=== PATIENT | female | born 2000 | race African-American/Black ===

== ENCOUNTER 2021-01-22 08:15 | Outpatient (CLI) | payer OTHER, SELFPAY ==
--- NOTE | ~2021-01-22 | NM_ITS ---
EXAM: NM gastric emptying study DATE: 01/22/2021 13:38 INDICATION: Gastroparesis and postprandial nausea TECHNIQUE: A gastric emptying study was performed using the methodology of Renee CUNNINGHAM, et al. J Nucl Med 2007; 48:568-572. The patient was given a meal consisting of 2 scrambled eggs labeled with 1 mCi Tc-99m sulfur colloid, 2 slices of toast, two packages of jam, and approximately 120 mL of water. Si multaneous anterior and posterior 1-min images of the abdomen were obtained with the patient supine a t multiple time points over a total period of 4 hours. The geometric mean of anterior and posterior v iews was determined, and the percentage retention was calculated for each time point. COMPARISON: None. FINDINGS: Gastric retention of the radiotracer-labeled meal was 61%, 31%, and 4% at the 1-hour, 2-hour, and 4-h our time points, respectively. With this technique, apparent rapid gastric emptying is suggested by < 30% gastric retention at 1 hour. Delayed gastric emptying is defined by gastric retention of >90% at 1 hour, >60% retention at 2 hours, or >10% retention at 4 hours. IMPRESSION: 1. Normal gastric emptying. Reviewed, dictated and finalized at location B. IMPRESSION: 1. Normal gastric emptying.
== END 2021-01-22 08:16 | disposition home or self-care (01) ==
PROVIDERS: PCP Emergency Medicine; Visit Provider Emergency Medicine
DX: R11.0 Nausea (principal); K31.84 Gastroparesis; R62.52 Short stature (child)
CPT/HCPCS: 78264; A9541

== ENCOUNTER 2021-01-25 07:24 | Outpatient (CLI) | payer OTHER, SELFPAY ==
--- NOTE | ~2021-01-25 | XR_ITS ---
EXAMINATION: XR UGIAC wo kub EXAM DATE: 01/25/2021 08:15 INDICATION: Postprandial nausea, gastroparesis. TECHNIQUE: Standard single and double contrast barium upper GI examination was performed by radiolog ist Christopher Patricio M.D. Pulsed dose reduction fluoroscopy was used with fluoroscopic time of 0.5 minut es. The DAP for this procedure was 0.4 Gycm2. A total of 84 images obtained for the exam. There is no prior study for comparison. FINDINGS: There is no esophageal stricture, diverticulum or mass identified. Gastroesophageal juncti on is normal in appearance. Reflux was not demonstrated during this examination. The stomach has a normal appearance without evidence of mass lesion, ulceration or filling defect. T here is normal rugal fold pattern. The duodenum and duodenal sweep are normal in appearance. IMPRESSION: Normal exam. Reviewed, dictated and finalized at location A. IMPRESSION: Normal exam.
== END 2021-01-25 07:25 | disposition home or self-care (01) ==
LOC: ANHIMG 07:26
PROVIDERS: PCP Emergency Medicine; Visit Provider Emergency Medicine
DX: K31.84 Gastroparesis (principal); R62.7 Adult failure to thrive
CPT/HCPCS: 74246

== ENCOUNTER 2022-07-21 14:17 | Emergency (ER) | payer OTHER, SELFPAY ==
--- NOTE | ~2022-07-21 | XR_ITS ---
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 RESULT: Lines, tubes, and devices: None. Lungs and pleura: Clear. Cardiomediastinal silhouette: Normal. Other: No acute osseous or upper abdominal finding. IMPRESSION: No acute cardiopulmonary process. Reviewed, dictated and finalized at location K. L ERECTING PUSHER
--- NOTE | 2022-07-21 14:19 | ECG_ITS ---
Measurements Intervals [place] Rate: 113 P: 66 WA: 113 QRS: 79 QRSD: 72 T: 1 QT: 283 QTc: 389 Interpretive Statements SINUS TACHYCARDIA WITH SHORT WA INTERVAL POSSIBLE LEFT ATRIAL ENLARGEMENT [-0.1mV P WAVE IN V1/V2] NONSPECIFIC T-WAVE ABNORMALITY ABNORMAL ECG NO PREVIOUS ECG AVAILABLE FOR COMPARISON Electronically Signed On 07-23-2022 14:06:06 COOKING CHEF by Bhavin Childress M.D.
[2022-07-21 14:45] VITALS: BP 119/56; PULSE 104; RESP 18; TEMP 37; O2SAT 100
--- NOTE | 2022-07-21 16:54 | ED.CHESTPAIN ---
HPI - Chest Pain General Chief Complaint: Chest Pain Stated Complaint: chest pain Course Vital Signs Vital signs: Vital Signs Temperature 37.0 C 07/21/22 14:45 Pulse Rate 104 H 07/21/22 14:45 Respiratory Rate 18 07/21/22 14:45 Blood Pressure 119/56 L 07/21/22 14:45 Pulse Oximetry 100 07/21/22 14:45 Oxygen Delivery Room Air 07/21/22 14:45 Temperature 37.0 C 07/21/22 14:45 Pulse Rate 104 H 07/21/22 14:45 Respiratory Rate 18 07/21/22 14:45 Blood Pressure 119/56 L 07/21/22 14:45 Pulse Oximetry 100 07/21/22 14:45 Oxygen Delivery Room Air 07/21/22 14:45 Discharge Plan Discharge Follow-up/Referrals: Vijay Ambriz MD [Primary Care Provider] -
[2022-07-21 18:30] VITALS: BP 117/78; PULSE 90; RESP 18; O2SAT 97
--- NOTE | 2022-07-21 19:25 | ED.GENADULT ---
HPI - General Adult General Chief complaint: Chest Pain Stated complaint: chest pain Time Seen by Provider: 07/21/22 16:55 History of Present Illness HPI narrative: Patient 22-year-old female who presents emergency department with chief complaint of chest pain. The patient reports for the last 2 weeks has been having both a sharp and a pressure-like pain on the right side of her chest. The patient states the pain is worse with palpation the patient reports that her mother felt a knot on the right side of her chest wall patient reports no significant past medical history reports she only takes vitamins on a regular basis and occasionally takes ibuprofen with her last dose being this morning. Patient denies being on oral contraceptives denies smoking. Related Data Allergies Allergy/AdvReac Type Severity Reaction Status Date / Time No Known Allergies Allergy Verified 07/21/22 20:06 Review of Systems Review of Systems: A 10 system review of systems was completed on the patient and is negative except for what is stated in the HPI. Nursing and ancillary documentation was reviewed. Exam Narrative: GENERAL: Well-appearing, well-nourished, and in no acute distress. HEAD: Normocephalic, atraumatic. EYES: PERRLA and EOMI. ENT: Nares clear, no rhinorrhea or epistaxis. Mucous membranes moist. NECK: Supple. CHEST: Clear to auscultation. Tenderness to palpation on the right sternal border No respiratory distress. HEART: Regular rate and rhythm. No murmur heard. Normal peripheral pulses. ABDOMEN: Soft, nontender, nondistended, normal active bowel sounds. EXTREMITIES: Normal range of motion. No edema. SKIN: Warm, dry, no rash. NEURO: No focal deficits. Alert and oriented x3. PSYCH: Normal mood and affect. Course Vital Signs Vital signs: Vital Signs Temperature 37.0 C 07/21/22 14:45 Pulse Rate 104 H 07/21/22 14:45 Respiratory Rate 18 07/21/22 14:45 Blood Pressure 119/56 L 07/21/22 14:45 Pulse Oximetry 100 07/21/22 14:45 Oxygen Delivery Room Air 07/21/22 14:45 Temperature 37.0 C 07/21/22 14:45 Pulse Rate 90 07/21/22 18:30 Respiratory Rate 18 07/21/22 18:30 Blood Pressure 117/78 07/21/22 18:30 Pulse Oximetry 97 07/21/22 18:30 Oxygen Delivery Room Air 07/21/22 14:45 Medical Decision Making MDM Narrative Medical decision making narrative: Differential diagnosis includes costochondritis, pleurisy, chest wall pain, ACS, pneumothorax, Chest x-ray was obtained and reviewed by radiology and results were reviewed by me that showed no focal findings. EKG is sinus tachycardia rate of [address] elevation or ST depression The patient had a negative troponin of less than 0.012 and a D-dimer that was also negative. Patient's discomfort has been ongoing for several days therefore the patient can be ruled out from a acute coronary syndrome. Chest x-ray showed no evidence of pneumothorax or widened mediastinum. Patient's pain was improved with Toradol the patient symptoms are most likely consistent with costochondritis the patient should follow-up with her primary care provider. Vital Signs Vital Signs: Vital Signs Temperature 37.0 C 07/21/22 14:45 Pulse Rate 104 H 07/21/22 14:45 Respiratory Rate 18 07/21/22 14:45 Blood Pressure 119/56 L 07/21/22 14:45 Pulse Oximetry 100 07/21/22 14:45 Oxygen Delivery Room Air 07/21/22 14:45 Temperature 37.0 C 07/21/22 14:45 Pulse Rate 90 07/21/22 18:30 Respiratory Rate 18 07/21/22 18:30 Blood Pressure 117/78 07/21/22 18:30 Pulse Oximetry 97 07/21/22 18:30 Oxygen Delivery Room Air 07/21/22 14:45 Lab Data 07/21/22 19:39 07/21/22 19:39 Labs: Lab Results 07/21/22 07/21/22 07/21/22 Range/Units 19:39 19:39 19:39 WBC 7.3 (4.5-10.0) K/mm3 RBC 4.60 (4.2-5.4) M/mm3 Hgb 13.8 (12.0-15.0) g/dL Hct 42.4 (37.0-47.0) % MCV 92.2 (80-100) fl MCH 30.0
--- NOTE | 2022-07-21 19:41 | PC.NURSE ---
Pt is a hard stick, unable to obtain IV access. Blood sent to lab.
[2022-07-21 19:59] LABS: Basophils Absolute Auto 0.1 K/mm3 (0.0-0.1); Basophils Percent Auto 0.7 % (0.2-1.2); Eosinophils Absolute Auto 0.1 K/mm3 (0-0.3); Eosinophils Percent Auto 1.4 % (0-4.4); Hematocrit 42.4 % (37.0-47.0); Hemoglobin 13.8 g/dL (12.0-15.0); Immature Granulocyte Absolute 0.02 K/mm3 (0.00-0.031); Immature Granulocyte Percent A 0.3 % (0-0.5); Lymphocytes Absolute Auto 2.29 K/mm3 (0.9-3.2); Lymphocytes Percent Auto 31.6 % (18.3-44.2); Mean Corpuscular HGB Conc 32.5 g/dl (32-36); Mean Corpuscular Volume 92.2 fl (80-100); Mean Platelet Volume 9.6 fl (7.4-10.4); Monocytes Absolute Auto 0.4 K/mm3 (0.1-0.6); Monocytes Percent Auto 5.8 % (2.6-8.5); Neutrophils Absolute Auto 4.4 K/mm3 (1.3-6.7); Neutrophils Percent Auto 60.2 % (45.5-73.1); Platelet Count Result 242 k/mm3 (150-375); Red Cell Distribution Width 13.1 % (11.5-14.5); White Blood Count 7.3 K/mm3 (4.5-10.0)
[2022-07-21] MEDS: KETOROLAC 30 MG/ML VIAL (*BKC) IV PUSH (20:06)
[2022-07-21 20:10] LABS: Alanine Aminotransferase 20 U/L (6-35); Albumin Level 4.8 g/dL (3.5-5.1); Alkaline Phosphatase 93 U/L (38-126); Anion Gap 8 mmol/L (8-16); Aspartate Amino Transferase 29 U/L (14-36); Bilirubin,Total 0.9 mg/dL (0.2-1.3); Blood Urea Nitrogen 14 mg/dL (7-17); Calcium 9.4 mg/dL (8.4-10.2); Carbon Dioxide 28 mmol/L (22-30); Chloride 101 mmol/L (98-107); Estimated Glomerular Filt Rate > 60; Glucose 73 mg/dL (65-110); Lipase 199 U/L (23-300); Potassium 4.1 mmol/L (3.4-5.0); Sodium 137 mmol/L (137-145)
[2022-07-21] MEDS: Please add drug allergy info to patient profile. 1 EACH XX (20:10)
[2022-07-21 20:22] LABS: Troponin I < 0.012 ng/mL (0.000-0.034)
[2022-07-21 20:38] LABS: INR 1.1; Prothrombin Time 14.1 Seconds (11.1-14.7)
[2022-07-21 20:40] LABS: D Dimer 0.39 ug/mL (<0.48)
--- NOTE | 2022-07-21 21:15 | PC.NURSE ---
Patient report received from Jose RN. Assumed care of patient at this time.
[2022-07-21 21:17] VITALS: BP 97/67; PULSE 84; RESP 17; O2SAT 100
== END 2022-07-21 21:30 | disposition home or self-care (01) ==
PROVIDERS: Emergency Provider Emergency Medicine; PCP Emergency Medicine
DX: M94.0 Chondrocostal junction syndrome [Tietze] (principal); R00.0 Tachycardia, unspecified; R94.31 Abnormal electrocardiogram [ECG] [EKG]
CPT/HCPCS: 36415; 71046; 80053; 83690; 84484; 85025; 85380; 85610; 85730; 93005; 96374; 99284; J1885

== ENCOUNTER 2025-02-15 13:18 | Outpatient (CLI) | payer OTHER, SELFPAY ==
--- NOTE | ~2025-02-15 | XR_ITS ---
EXAMINATION: XR wrist LT 2V, 02/15/2025 13:29 CDT HISTORY: left wrist pain x 1 week COMPARISON: No comparisons available. Findings: No acute fracture or malalignment. No significant degenerative changes. Soft tissues unremarkable. Impression: No acute fracture or malalignment. Reviewed, dictated and finalized at location A. Impression: No acute fracture or malalignment.
== END 2025-02-15 13:19 | disposition home or self-care (01) ==
PROVIDERS: PCP Emergency Medicine; Visit Provider Emergency Medicine
DX: M25.532 Pain in left wrist (principal)
CPT/HCPCS: 73100